=== PATIENT | male | born 1970 | race Caucasian/White ===

== ENCOUNTER → 2018-06-28 10:43 | Outpatient (CLI) | payer OTHER, MEDICAID, SELFPAY ==
--- NOTE | 2018-06-28 | DI.RAD.S_ITS ---
PROCEDURE: XR HIP W PEL IF DONE LT MIN 4V INDICATIONS: CHRONIC RIGHT HIP PAIN TECHNIQUE: AP pelvis with lateral view(s) of the right and left hip(s). COMPARISON: None. FINDINGS: Bones: No fractures or dislocations. Pelvic ring appears intact. No suspicious bony lesions. Mild bilateral hip subchondral spurring and sclerosis. Soft tissues: The visualized bowel gas pattern is normal. No suspicious soft tissue calcifications. IMPRESSION: Mild degenerative spurring otherwise unremarkable examination as above. If the patient's pain or other symptoms persist, consider further evaluation with MRI Dictated by: David Villatoro M.D. on 06/28/2018 at 11:46 Approved by: David Villatoro M.D. on 06/28/2018 at 11:48
== END ==
PROVIDERS: PCP Family Medicine; Visit Provider Family Medicine
DX: M25.551 Pain in right hip (principal); G89.29 Other chronic pain
CPT/HCPCS: 73522

== ENCOUNTER → 2020-04-23 13:26 | Outpatient (CLI) | payer OTHER, MEDICAID, SELFPAY ==
--- NOTE | 2020-04-23 | DI.CT.S_ITS ---
PROCEDURE: CT CHEST ABD PEL W CON INDICATIONS: LYMPHADENOPATHY,DIVERTICULITIS TECHNIQUE: After the administration of intravenous contrast, 5 mm thick sections acquired from the lung apices to the symphysis. 5 mm coronal and sagittal reformats were performed, with additional 7 mm MIP reformats through the lungs. For radiation dose reduction, the following was used: automated exposure control, adjustment of mA and/or kV according to patient size. COMPARISON: None. FINDINGS: Image quality: Excellent. CHEST: Lungs and pleura: There are innumerable scattered pulmonary nodules seen in the bilateral hemithoraces predominantly in a peripheral, subpleural distribution. These are variable in size. Some appear to be fissural based . Additionally, multiple pulmonary nodules demonstrate associated coarse internal calcifications. No septal thickening or nodularity. There is mild background centrilobular pulmonary emphysematous change. No pleural effusions or pneumothorax. Central and peripheral airways appear patent and normal in caliber. Mediastinum: Heart size is normal. No pericardial effusion. Extensive mediastinal and hilar adenopathy, many of which demonstrate internal coarse calcifications. Additionally, some demonstrate internal low attenuation suggesting possible necrosis. Paraesophageal lymph nodes are also noted near the GE junction. Mediastinal adenopathy extends to the superior mediastinum. Largest conglomeration of nodes identified in the subcarinal region measuring approximately 4.4 cm x 2.1 cm in transverse dimension (image 27, series 2). No mediastinal or hilar adenopathy by size criteria. Thoracic aorta and central pulmonary arteries are normal in size. Esophagus is normal in caliber. No hiatal hernia. Chest wall: No axillary or supraclavicular adenopathy by size criteria. Thyroid gland appears unremarkable. ABDOMEN: Solid organs: Liver is normal in size and enhancement. Gallbladder is unremarkable. . Biliary system is non dilated. Pancreas enhances normally. Spleen is normal in size and enhancement. No adrenal nodules. Kidneys demonstrate normal size and enhancement, without hydronephrosis. Peritoneum and bowel: Extensive sigmoid colon diverticular disease with short segment of circumferential wall thickening of the proximal sigmoid colon. Minimal distal sigmoid peridiverticular stranding. There is a focus of epiploic appendagitis involving the left lower quadrant near the distal descending colon (image 80, series 2). No evidence for bowel obstruction. Normal appendix. No free fluid or air. Nodes and vessels: There is mesenteric adenopathy with the largest mesenteric lymph node visualized in the mid abdomen measuring 1.8 cm in short axis dimension (image 78, series 2). Multiple scattered mesenteric and retroperitoneal lymph nodes are seen throughout the abdomen and pelvis. Aorta and inferior vena cava are normal in size. Miscellaneous: No ventral hernias. PELVIS: Genitourinary: Bladder wall thickness is normal. Miscellaneous: No inguinal hernias or adenopathy. Bones: No suspicious bony lesions. No acute vertebral body compression fractures. IMPRESSION: 1. Innumerable pulmonary nodules identified in the bilateral hemithoraces with associated hilar and mediastinal adenopathy compatible with diffuse pulmonary metastases. Superimposed sequela of prior granulomatous disease is possible given presence of several scattered partially calcified pulmonary nodules and mediastinal/hilar lymph nodes; however, neoplastic etiology is favored. 2. Extensive sigmoid colon diverticulosis with possible mild diverticulitis of the distal sigmoid colon. There is a short segment of wall thickening of the proximal sigmoid colon which may be sequela of chronic diverticular disease; however, malignancy not excluded. There are scattered retroperitoneal and mesenteric adenopathy suspicious for metastatic disease. Consider further evaluation with colonoscopy after resolution of acute findings. 3. Epiploic appendagitis of the left lower quadrant (adjacent to distal descending colon). Dictated by: Eamon Torres M.D. on 04/23/2020 at 15:59 Approved by: Eamon Torres M.D. on 04/23/2020 at 16:27
--- NOTE | 2020-04-23 | DI.CT.S_ITS ---
PROCEDURE: CT SOFT TISSUE NECK W CON INDICATIONS: LYMPHADENOPATHY,DIVERTICULITIS TECHNIQUE: After the administration of intravenous contrast, 3.0 mm axial sections acquired from the sella to the aortic arch. Additional oblique axial 3.0 mm sections acquired through the pharynx. 3 mm thick coronal and sagittal reformats were generated. For radiation dose reduction, the following was used: automated exposure control. COMPARISON: None. FINDINGS: Image quality: Excellent. Lymph nodes: Extensive bilateral left-sided cervical lymphadenopathy, the largest of which seen , a the left level 2 lymph node image 29/2 measuring 1.4 x 1.8 cm Additional shotty right jugular chain lymph nodes are seen although without definite pathologic enlargement greater than 1 cm. Numerous pathologically enlarged upper mediastinal lymph nodes are seen, partially visualized in the prevascular space measuring 1.9 x 1.3 cm, at the right paratracheal station measuring 1.8 x 1.7 cm. Mildly enlarged 1.4 x 1.0 cm left supraclavicular lymph node. Additional shotty subcentimeter right supraclavicular lymph nodes incidentally noted. Vessels: Visualized vasculature appears patent. Neck spaces: The oropharynx, nasopharynx, and pharynx demonstrate no mucosal lesions. The vocal cords, false vocal cords, pyriform sinuses, epiglottis, vallecula, and tongue base all appear normal. Extramucosal spaces appear unremarkable. Glands: The parotid and submandibular glands appear normal. Thyroid is grossly unremarkable Miscellaneous: In the bilateral upper lobes, there are innumerable pleural nodules. Additional subcentimeter scattered upper lobe nodules bilaterally are noted, for example in the left upper lobe on image 13/3 measuring 5 mm. Bones: Cervical spondylosis and facet arthropathy. Mild left maxillary sinus disease. IMPRESSION: Extensive left-sided cervical lymphadenopathy as detailed above, with shotty subcentimeter right jugular chain lymph nodes . Mildly enlarged left supraclavicular lymphadenopathy. Additional right subcentimeter supraclavicular lymph nodes. Partially visualized superior mediastinal lymphadenopathy with pathologic enlargement Innumerable bilateral pulmonary and pleural nodules in keeping with metastatic disease Dictated by: David Villatoro M.D. on 04/23/2020 at 15:34 Approved by: David Villatoro M.D. on 04/23/2020 at 15:51
== END ==
PROVIDERS: PCP Family Medicine; Referring Provider Family Medicine; Visit Provider Family Medicine
DX: R59.1 Generalized enlarged lymph nodes (principal); R91.8 Other nonspecific abnormal finding of lung field; K57.32 Diverticulitis of large intestine without perforation or abscess without bleeding; K63.89 Other specified diseases of intestine
CPT/HCPCS: 70491; 71260; 74177; Q9967

== ENCOUNTER → 2023-04-28 12:44 | Outpatient (CLI) | payer OTHER, MEDICAID, SELFPAY ==
--- NOTE | 2023-04-28 | DI.CT.S_ITS ---
PROCEDURE: CT ABDOMEN PELVIS W CON INDICATIONS: INTR-ABDOMINAL AND PELVIC SWELLING, MASS, AND LUMP TECHNIQUE: After the administration of intravenous contrast, axial sections acquired from the lung bases to the pubic symphysis. Coronal and sagittal reformats were performed. For radiation dose reduction, the following was used: automated exposure control, adjustment of mA and/or kV according to patient size. COMPARISON: [facility], CT, CT CHEST ABD PEL W CON, 04/23/2020, 14:31. FINDINGS: Image quality: Diagnostic. Lower Chest: Innumerable pleural nodules are redemonstrated along the mid lung pleura measuring from approximately 0.5-1 cm in diameter. Some of these nodules appear centrally calcified. Overall these findings are similar to the comparison CT dated April 23, 2020. The inferior lung bases are predominantly free of pleural nodules, as before. ABDOMEN: Liver: No solid mass. Gallbladder: Mildly contracted. Biliary ducts: No biliary dilation. Pancreas: No ductal dilation. Spleen: Size is within normal limits. There are small splenule at the anterior spleen. Adrenal Glands: No adrenal nodules. Kidneys and Ureters: No hydronephrosis. No solid mass. No complex renal cystic lesion which requires follow up. Stomach and Bowel: Normal colonic caliber, without significant wall thickening. There is a small gas filled duodenal diverticulum. Anastomotic suture is present within the mid sigmoid colon. The appendix is thin walled and gas filled. Peritoneum: No free peritoneal fluid or pneumatosis. There is mild fat stranding at the mesenteric root. The mesenteric adenopathy visualized on the prior study from April 23, 2020 is no longer present. Multiple shotty subcentimeter lymph nodes are now present. Ventral Wall: There is a small right spigelian hernia which contains a nondilated loop of small bowel. No findings to suggest strangulation or ischemia at this time. Abdominal Nodes: No retroperitoneal or mesenteric adenopathy by size criteria. Vessels: Aorta and inferior vena cava are normal in size. PELVIS: Pelvic Organs: Unremarkable. Bladder: Unremarkable. Pelvic Nodes: No enlarged lymph nodes. Miscellaneous: No inguinal hernias are seen. Bones: No aggressive osseous abnormality. IMPRESSION: 1. Innumerable pleural nodules as before suspicious for sequela of prior granulomatous disease. 2. Right-sided spigelian hernia with non strangulated appearing loop of small bowel present. 3. No acute intra-abdominal findings. Normal appendix. 4. Mild fat stranding at the mesenteric root which may be associated with prior, treated lymphoma. Dictated by: Sharon Bonilla M.D. on 04/29/2023 at 12:18 Approved by: Sharon Bonilla M.D. on 04/29/2023 at 12:28
== END ==
LOC: CT 12:45
PROVIDERS: PCP Family Medicine; Referring Provider Surgery; Visit Provider Surgery
DX: K57.32 Diverticulitis of large intestine without perforation or abscess without bleeding (principal); R19.00 Intra-abdominal and pelvic swelling, mass and lump, unspecified site; R91.8 Other nonspecific abnormal finding of lung field; K43.9 Ventral hernia without obstruction or gangrene
CPT/HCPCS: 74177; Q9967